=== PATIENT | female | born 1980 | race Caucasian/White ===

== ENCOUNTER → 2018-07-27 | Outpatient (CLI) | payer BC | END | disposition home or self-care (01) | LOC: CVU 09:27 → MERGE 09:27 | PROVIDERS: ATTEND Nurse Practitioner Family | DX: I86.8 Varicose veins of other specified sites (principal); L81.9 Disorder of pigmentation, unspecified; M79.89 Other specified soft tissue disorders | CPT/HCPCS: 93970 ==